=== PATIENT | female | born 1980 | race American Indian/Alaskan Native ===

== ENCOUNTER 2021-12-10 07:21 | Emergency (ER) | payer SELFPAY ==
[2021-12-10 07:43] VITALS: BP 157/107
[2021-12-10] MEDS ORDERED: dexAMETHasone 20 MG/5 ML VIAL IM ONE (13:11)
--- NOTE | 2021-12-10 13:17 | Emergency Department Report ---
ED Rash HPI - HPI Chief Complaint: Skin Rash Stated Complaint: BREAKOUT Location: Lower Extremities, Other (faface) Rash Symptoms: Yes Itching, No Facial Swelling, No Tongue/Oral Swelling, No Breathing Difficulties, No Choking Sensation, No Wheezing/Dyspnea, No Peeling, No Blistering, No Fever, No Lightheaded, No Malaise, No Myalgias Severity: moderate Other History: 41-year-old female presents with a rash to the right wrist area and face. Patient states that she had a rash to her right wrist x2 weeks she has been using peroxide, and antifungal cream, anti-itch cream without any relief. She states she noted this a.m. that she had a rash to her face that became very itchy. Patient states she took a Benadryl prior with moderate relief. Patient denies any shortness of breath, fever ,chills or nausea or vomiting. No acute distress noted. no ill appearance noted. ED Review of Systems ROS: Stated complaint: BREAKOUT Other details as noted in HPI Constitutional: denies: chills, fever Eyes: denies: eye pain, eye discharge, vision change ENT: denies: ear pain, throat pain Respiratory: denies: cough, shortness of breath, wheezing Cardiovascular: denies: chest pain, palpitations Endocrine: no symptoms reported Gastrointestinal: denies: abdominal pain, nausea, diarrhea Genitourinary: denies: urgency, dysuria, discharge Musculoskeletal: denies: back pain, joint swelling, arthralgia Skin: rash. denies: lesions Neurological: denies: headache, weakness, paresthesias Psychiatric: denies: anxiety, depression Hematological/Lymphatic: denies: easy bleeding, easy bruising ED Past Medical Hx - Past Medical History Previous Medical History?: Yes Additional medical history: vaginal delivery x 2, Ectopic - Surgical History Past Surgical History?: Yes Additional Surgical History: surgery for a ectopic - Medications Home Medications: Home Medications Medication Instructions Recorded Confirmed Last Taken Type Sulfamethoxazole/Trimethoprim 1 each PO BID 10 Days #20 tab 12/10/21 Unknown Rx [Bactrim DS TAB] cephALEXin [Keflex] 500 mg PO Q12HR 10 Days #20 cap 12/10/21 Unknown Rx predniSONE [Deltasone] 50 mg PO QDAY 5 Days #5 tab 12/10/21 Unknown Rx traMADoL [Ultram] 50 mg PO Q6HR PRN 3 Days #12 tablet 12/10/21 Unknown Rx Rash Exam - Exam General: Vital signs noted. No distress. Alert and acting appropriately. HEENT: No Periorbital Edema, No Conjuctival Injection, No Chemosis, No Perioral Edema, No Tongue Edema, No Uvular Edema, No Compromised Airway, No Drooling Lungs: Yes Good Air Exchange (Normal Breath Sounds), No Wheezes, No Ronchi, No Stridor, No Cough, No Labored Respirations, No Retractions, No Use of Accessory Muscles, No Other Abnormal Lung Sounds Heart: Yes Regular, No Murmur Skin: Yes Urticarial Rash, Yes Excoriations, Yes Weeping, Yes Tenderness, No Maculopapular Rash, No Morbilliform rash, No Bulla(e), No Erythema, No Edema, No Encrustations, No Other Other: Positive: Abdomen Normal, Neurologic Normal, Musculoskeletal Normal ED Course Vital Signs 12/10/21 07:41 Temperature 98.8 F Pulse Rate 93 H Respiratory 20 Rate Blood Pressure 157/107 [Right] O2 Sat by Pulse 100 Oximetry ED Medical Decision Making - Medical Decision Making 41-year-old female presents to the ED with abscess noted to the labia area x4 days. States that she has been using warm sitz hot press to the labia area with mild relief. Patient states that she is 6 weeks . 2 para 0 A1. Patient denies any fever chills or nausea. She denies any abdominal pain vaginal discharge ,or vaginal bleeding. Patient states that she often shave her vaginal area. Last time she checked was 3 prior to having the abscess. Patient is alert and oriented x3. No acute distress no. No ill appearance noted. Physical examination patient has erythema macular papular rash noted to the right with with yellow crusted noted. Weeping noted to the rash. Patient had a wheal noted to the facial area. Rechecked the patient is resting quietly quietly and comfortable and feeling better. I discussed the results of diagnostic study, my clinical impression and the plan for further treatment with the patient. Patient agrees with plan and discharge at this present time. All question addressed. I have given the patient instruction regarding a diagnosis ,expectation ,follow- up and return precaution. I explained to the patient that emergent condition may arise and to return to the ED for new worsen and any new persisting condition. I have explained the importance of following up with the primary care physician or referral physician listed below has instructed. The patient verbalized understanding of discharge instruction. Critical care attestation.: If time is entered above; I have spent that time in minutes in the direct care of this critically ill patient, excluding procedure time. ED Disposition Clinical Impression: Cellulitis Qualifiers: Site of cellulitis: extremity Site of cellulitis of extremity: upper extremity Laterality: right Qualified Code(s): L03.113 - Cellulitis of right upper limb Disposition: HOME / SELF CARE / HOMELESS Is pt being admited?: No Does the pt Need Aspirin: No Condition: Stable Instructions: Cellulitis, Adult, [id number] Additional Instructions: Take medication as prescribed return to the ED for any worsening symptom Prescriptions: Sulfamethoxazole/Trimethoprim [Bactrim DS TAB] 1 each PO BID 10 Days #20 tab predniSONE [Deltasone] 50 mg PO QDAY 5 Days #5 tab cephALEXin [Keflex] 500 mg PO Q12HR 10 Days #20 cap traMADoL [Ultram] 50 mg PO Q6HR PRN 3 Days #12 tablet PRN Reason: Pain Referrals: [facility] [Provider Group] - 3-5 Days Forms: Work/School Release Form(ED) Time of Disposition: 13:25
== END 2021-12-10 16:20 | disposition home or self-care (01) ==
LOC: ED 07:21
DX: L03.113 Cellulitis of right upper limb (principal); Z98.890 Other specified postprocedural states; Z79.899 Other long term (current) drug therapy
CPT/HCPCS: 96372; 99282; J1100